=== PATIENT | female | born 1985 | race Caucasian/White ===

== ENCOUNTER → 2017-05-15 | Outpatient (CLI) | payer OTHER ==
--- NOTE | 2017-05-15 17:47 | US ---
EXAM DESCRIPTION: Pelvis Transvaginal CLINICAL HISTORY: Vaginal bleeding for two weeks. Obstetrical history: Unknown. LMP early March 2017. COMPARISON: Abdominal ultrasound. TECHNIQUE: Transpelvic scanning through the urine filled bladder: 2-dimensional and Doppler modes. Patient refuses endovaginal scan. FINDINGS: Uterus: 9.0 x 7.5 x 6.1 cm. Gestational sac: Gestational sac is noted in the fundus. Hypoechoic tissue noted inferior to the gestational sac. Mean sac diameter is 1.86 cm corresponding to EGA six weeks and six days. pole: Visualized but not measured. Yolk sac: Not visualized. Subchorionic hemorrhage: Possibly inferior to the gestational sac. heart tones: Could not be measured. Cul-de-sac: No fluid. Comments: KATHRIN based upon gestational sac measurements is January 02, 2018. Right ovary dimensions are 3.4 x 2.9 x 2.7 cm. Normal color and pulse wave Doppler blood flow. No dominant cyst. No adnexal mass or free fluid. Left ovary dimensions are 2.6 x 2.1 x 2.1 cm. Normal color and pulse wave Doppler blood flow. No dominant cyst. No adnexal mass or free fluid. IMPRESSION: 1. Intrauterine pole is noted, but heart rate could not be measured. Yolk sac was not seen. Early spontaneous versus living intrauterine . Gestational sac is well-defined. Possible subchorionic hemorrhage. By gestational sac measurements, EGA is six weeks and six days with KATHRIN 01/02/2018. Consider follow-up OB ultrasound in 1-2 days and correlate with serial beta hCG measurements. No fluid in the cul-de-sac. 2. Bilateral ovaries are not visible with normal vascularity. No adnexal mass or free fluid. Electronically signed by: Ahsan Giraldo MD 05/15/2017 5:46 PM CDT
--- NOTE | 2017-05-16 09:15 | US ---
EXAM DESCRIPTION: Abdomen, limited ultrasound. CLINICAL HISTORY: UNSPECIFIED ABDOMEN PAIN COMPARISON: Pelvic ultrasound on the same visit. TECHNIQUE: Transcutaneous scanning: Two-dimensional and Doppler modes. FINDINGS: Minimal ascites. Gallbladder was contracted. IMPRESSION: Recommend repeat examination after patient fasting. Electronically signed by: Ahsan Giraldo MD 05/16/2017 9:13 AM CDT
== END | disposition home or self-care (01) ==
LOC: LAB.O 16:24
PROVIDERS: ATTEND Nurse Practitioner Family
DX: N92.6 Irregular menstruation, unspecified (principal)

== ENCOUNTER → 2017-05-29 | Outpatient (CLI) | payer OTHER | END | disposition home or self-care (01) | LOC: LAB.O 05-18 16:14 | PROVIDERS: ATTEND Nurse Practitioner Family | DX: N92.6 Irregular menstruation, unspecified (principal) ==

== ENCOUNTER → 2017-05-31 | Outpatient (CLI) | payer OTHER ==
--- NOTE | 2017-06-01 15:57 | US ---
EXAM DESCRIPTION: Pelvis Transvaginal CLINICAL HISTORY: Unspecified complication following spontaneous . Obstetrical history: six, para four, AB one. LMP unknown. EGA nine weeks, two days. KATHRIN 01/01/2018. COMPARISON: Pelvic ultrasound 05/15/2017. TECHNIQUE: Transpelvic scanning through the urine filled bladder: Endovaginal scannin-dimensional and Doppler modes. FINDINGS: Uterus: 12.9 x 9.4 x 6.2 cm. Gestational sac: Well-defined. pole: Mean CRL is 2.48 cm. EGA nine weeks, five days. Yolk sac: Not seen. Subchorionic hemorrhage: Possibly near the fundus and to the right of the gestational sac measuring 2.3 x 1.77 cm. heart tones: 160 bpm. Cul-de-sac: No fluid. Comments: KATHRIN by CRL is 01/02/2018. Right ovary dimensions are 2.6 x 2.0 x 2.8 cm. Normal Doppler blood flow. No dominant cyst. No adnexal mass or free fluid. Left ovary dimensions are 3.0 x 1.9 x 1.6 cm. Normal Doppler blood flow. No dominant cyst. No adnexal mass or free fluid. IMPRESSION: 1. Single living intrauterine gestation. EGA by crown-rump length measurement is nine weeks five days with KATHRIN 01/02/2018. This is one day older than the EGA by menstrual dates. Small subchorionic hemorrhage abutting the gestational sac. No fluid in the cul-de-sac. 2. Bilateral ovaries are well-demonstrated with normal vascularity. No dominant cyst or adnexal mass. Electronically signed by: Ahsan Giraldo MD 06/01/2017 3:55 PM CDT
== END | disposition home or self-care (01) ==
LOC: US 10:08
PROVIDERS: ATTEND Nurse Practitioner Family
DX: O03.80 Unspecified complication following complete or unspecified spontaneous abortion (principal)

== ENCOUNTER 2017-07-11 21:23 | Emergency (ER) | payer OTHER ==
--- NOTE | 2017-07-11 21:43 | ED.PDOC ---
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 She is 15 weeks . She is followed by a Manager Payment. Reports she started spotting yesterday. Cramping started @ ~17:30. Heavy bleeding started about 1 hour ago. Called her Manager Payment who advised her to go to the ER. Reports her pain is just like labor pains. Bleeding is heavier than spotting but not as heavy as a period. Timing/Duration: yesterday, getting worse Quality: severe, cramping Onset Location: suprapubic Radiation: none Activites at Onset: none Prior abdominal problems: none Sexual intercourse history: single partner - 15 weeks Improving Factors: nothing Worsening Factors: nothing Associated Symptoms: abdominal pain Allergies/Adverse Reactions: Allergies Diphenhydramine [From Benadryl] Allergy (Verified 07/11/17 21:51) Review of Systems - Review of Systems Constitutional: States: no symptoms reported Respiratory: States: no symptoms reported Cardiology: States: no symptoms reported Gastrointestinal/Abdominal: States: abdominal pain Genitourinary: States: see HPI Musculoskeletal: States: no symptoms reported Skin: States: no symptoms reported Neurological: States: no symptoms reported All other Systems: No Change from Baseline Family Medical History - Family History Mother Family History: Unknown Physical Exam - Physical Exam General Appearance: Agitated, Obvious distress, Well Developed, Well Groomed, Well Hydrated, Well Nourished Neck: supple, normal inspection Cardiovascular/Respiratory: regular rate, rhythm, no M/R/G, normal breath sounds , no respiratory distress Gastrointestinal/Abdominal: normal bowel sounds, soft, tenderness - over uterus Extremity: normal range of motion, normal inspection Neurologic: alert, normal mood/affect, oriented x 3 Skin Exam: normal color, warm/dry Progress - Progress Progress: 07/11/17 22:02 Sono shows fetus has moved from upper uterus to just @ inner aspect of cervix. No obvious heart tones. No measurable fetus per certified bench jeweler technician. Patient still having lots of pain after Fentanyl 50mcg IV so will give another 50mcg 07/11/17 22:18 Awaiting return call from FOREIGN LANGUAGE PROFESSOR @ [facility] 07/11/17 22:54 Patient passed a 15 week fetus. Pitocin started to help with passing the placenta. 07/11/17 23:32 Patient would like to go home. Still cramping and bleeding. Discussed the importance of follow up Hcg levels to be sure it returns to 0 and that all products of conception have passed. She will follow up with her PCP in 3-5 days to recheck. - Results/Orders Results/Orders: Laboratory Tests 07/11/17 21:30 Beta HCG, Quant 3176.0 H Departure - Departure Clinical Impression: Complete miscarriage Time of Disposition: 23:35 Disposition: Discharge to Home or Self Care Condition: Good Departure Forms: ED Discharge - Pt. Copy, Patient Portal Self Enrollment Instructions: DI for Miscarriage Diet: resume usual diet Activity: increase activity as tolerated Referrals: SHAGGY BISHOP IV GARBAGE COLLECTOR [Primary Care Provider] - 1-5 Days (Needs follow up Hcg Quant levels for miscarriage)
[2017-07-11] MEDS ORDERED: fentaNYL CITRATE INJ 50 MCG/ML AMP ONE (21:48)
[2017-07-11] MEDS ORDERED: fentaNYL CITRATE INJ 50 MCG/ML AMP IV ONE ×2 (21:48→22:01)
[2017-07-11 21:52] VITALS: TEMP 98.2
[2017-07-11] MEDS ORDERED: SODIUM CHLORIDE 0.9% 1000ML 1,000 ML ONE (22:43)
[2017-07-11] MEDS ORDERED: OXYTOCIN INJ 10 UNITS/ML VIAL ONE (22:43)
[2017-07-11] MEDS: OXYTOCIN INJ 20 UNITS in SODIUM CHLORIDE 0.9% 1000ML 1,000 ML IV SCH (22:50)
[2017-07-11] MEDS ORDERED: ACETAMINOPHEN 500 MG TAB PO ONE (23:17)
[2017-07-12] MEDS ORDERED: ACETAMINOPHEN 500 MG TAB ONE (00:20)
[2017-07-12] MEDS ORDERED: SODIUM CHLORIDE 0.9% 1000ML 1,000 ML IVS ONE ×2 (00:35→04:44)
[2017-07-12] MEDS ORDERED: miSOPROStol 100 MCG TAB PR ONE (00:38)
--- NOTE | 2017-07-12 00:49 | US ---
EXAM DESCRIPTION: OB , limited CLINICAL HISTORY: 32 years Female 15 wks, cramping bleeding COMPARISON: 05/31/2017. TECHNIQUE: Transabdominal real-time, cerda scale imaging performed to evaluate the pelvis. FINDINGS: Limited study. There appears to be an empty gestational sac. No movement is visualized. No heart tones are identified. IMPRESSION: There appears to be an empty gestational sac with no movement or no heart tones. The findings are consistent with interval demise and retained products. Electronically signed by: Chong Amaro MD 07/12/2017 12:48 AM REEL OPERATOR
[2017-07-12] MEDS ORDERED: OXYTOCIN INJ 10 UNITS/ML VIAL ONE ×2 (00:51→03:18)
[2017-07-12] MEDS ORDERED: SODIUM CHLORIDE 0.9% 1000ML 1,000 ML ONE ×3 (00:51→04:35)
[2017-07-12] MEDS: OXYTOCIN INJ 20 UNITS in SODIUM CHLORIDE 0.9% 1000ML 1,000 ML IV SCH (03:20)
[2017-07-12 04:04] VITALS: O2SAT 100
[2017-07-12] MEDS ORDERED: fentaNYL CITRATE INJ 50 MCG/ML AMP IV ONE (05:05)
[2017-07-12] MEDS ORDERED: fentaNYL CITRATE INJ 50 MCG/ML AMP ONE (05:05)
[2017-07-12 05:54] VITALS: BP 109/68
== END 2017-07-12 05:35 | disposition short-term general hospital (02) ==
LOC: ER 21:23
DX: O03.9 Complete or unspecified spontaneous abortion without complication (principal)
CPT/HCPCS: 36415; 76815; 80053; 81001; 84702; 85025; 86850; 86900; 86901; J2590; J3010; J7030